=== PATIENT | female | born 1985 | race Caucasian/White ===

== ENCOUNTER 2019-02-07 17:32 | Emergency (ER) | payer SELFPAY, MEDICAID | END 2019-02-07 19:42 | disposition home or self-care (01) | LOC: ER 17:32 ==

== ENCOUNTER 2019-05-01 01:40 | Emergency (ER) | payer SELFPAY ==
[~2019-05-01] VITALS: Ht 152.4 cm; Wt 59.0 kg
[~2019-05-01 01:40] MED LIST: CEPH500C PO; METR500T PO; NITR-65 PO; PRM25T PO
--- NOTE | 2019-05-01 01:46 | NUR ---
pt reports fall from standing position striking occiput of head. denies loc. also reports possible retained tampon. pt requesting ct of head eat. lab work be drawn.
[2019-05-01 02:02] LABS: BILIRUBIN,URINE NEGATIVE (NEGATIVE); CLARITY,URINE CLEAR; COLOR,URINE AMBER; GLUCOSE, URINE (UA) NEGATIVE (NEGATIVE); KETONES,URINE 1+ (NEGATIVE); LEUKOCYTE ESTERASE ,URINE 1+ (NEGATIVE); NITRITE,URINE NEGATIVE (NEGATIVE); PH,URINE 5 (5-9); PROTEIN,URINE 1+ (NEGATIVE); UROBILINOGEN,URINE 1 MG/DL (NORMAL)
--- NOTE | 2019-05-01 02:14 | ED General ---
General Chief Complaint: General Problems/Pain Stated Complaint: HERNIA,ABD PAIN,HEAD INJURY Nursing Triage Note: fall posterior head pain, no loc. possible retained tampon Nursing Sepsis Screen: No Definite Risk Allergies and Home Medications Allergies Coded Allergies: No Known Drug Allergies (Verified Allergy, Unknown, 12/31/07) Home Medications No Active Prescriptions or Reported Meds Past Tvnnwfh-Fpfxvl-Ptouyi Hx Patient Social History Alcohol Use: Occasionally Uses Recreational Drug Use: No Drug of Choice: METH Smoking Status: Current Everyday Smoker Type Used: Cigarettes Recent Foreign Travel: No Contact w/Someone Who Travel: No Recent Infectious Disease Expo: No Recent Hopitalizations: No Physical Abuse: No Sexual Abuse: No Mistreated: No Fear: No Immunizations Up To Date Tetanus Booster (TDap): Unknown Seasonal Allergies Seasonal Allergies: No Past Medical History Surgeries: No Respiratory: No Cardiac: No Neurological: No : No Last Menstrual Period: May 01, 2019 Reproductive Disorders: No Sexually Transmitted Disease: No Genitourinary: No Gastrointestinal: No Musculoskeletal: No Endocrine: No HEENT: No Cancer: No Psychosocial: No Integumentary: No Blood Disorders: No Physical Exam Vital Signs Vital Signs - First Documented 05/01/19 01:46 Temp 96.1 Pulse 102 Resp 20 B/P (MAP) 130/91 (104) Pulse Ox 100 O2 Delivery Room Air Capillary Refill : Less Than 3 Seconds Height, Weight, BMI Height: 5'0" Weight: 130lbs. oz. 58.925284ds; 23.43 BMI Method:Stated Progress/Results/Core Measures Suspected Sepsis Recent Fever Within 48 Hours: No Infection Criteria Present: None New/Unexplained Altered Menta: No Sepsis Screen: No Definite Risk SIRS Temperature:96.1 Pulse: 102 Respiratory Rate: 20 Blood Pressure 130 /91 Mean: 104 Results/Orders Lab Results Laboratory Tests Test 05/01/19 01:55 Range/Units Urine Color YAMIL H Urine Clarity CLEAR Urine pH 5 5-9 Urine Specific Stewart 1.020 1.016-1.022 Urine Protein 1+ H NEGATIVE Urine Glucose (UA) NEGATIVE NEGATIVE Urine Ketones 1+ H NEGATIVE Urine Nitrite NEGATIVE NEGATIVE Urine Bilirubin NEGATIVE NEGATIVE Urine Urobilinogen 1 NORMAL MG/DL Urine Leukocyte Esterase 1+ H NEGATIVE Urine RBC (Auto) 5+ H NEGATIVE Urine RBC RARE /HPF Urine WBC 0-2 /HPF Urine Squamous Epithelial Cells 10-25 H /HPF Urine Crystals NONE /LPF Urine Bacteria FEW H /HPF Urine Casts NONE /LPF Urine Mucus MODERATE H /LPF Urine Culture Indicated NO Urine Opiates Screen NEGATIVE NEGATIVE Urine Oxycodone Screen NEGATIVE NEGATIVE Urine Methadone Screen NEGATIVE NEGATIVE Urine Propoxyphene Screen NEGATIVE NEGATIVE Urine Barbiturates Screen NEGATIVE NEGATIVE Ur Tricyclic Antidepressants Screen NEGATIVE NEGATIVE Urine Phencyclidine Screen NEGATIVE NEGATIVE Urine Amphetamines Screen POSITIVE H NEGATIVE Urine Methamphetamines Screen POSITIVE H NEGATIVE Urine Benzodiazepines Screen NEGATIVE NEGATIVE Urine Cocaine Screen NEGATIVE NEGATIVE Urine Cannabinoids Screen NEGATIVE NEGATIVE My Orders Orders - NANDINI CURRAN DO Urine Bedside (05/01/19 01:50) Ua Culture If Indicated (05/01/19 01:50) Drug Screen Stat (Urine) (05/01/19 02:07) Vital Signs/I&O 05/01/19 01:46 Temp 96.1 Pulse 102 Resp 20 B/P (MAP) 130/91 (104) Pulse Ox 100 O2 Delivery Room Air Capillary Refill : Less Than 3 Seconds Blood Pressure Mean: 104 Departure Impression Primary Impression: ALLEGED MINOR HEAD CONTUSION--SELF REPORTED Additional Impressions: EXAM TO CHECK FOR POSSIBLE RETAINED TAMPON Illicit drug use Disposition: HOME, SELF-CARE Condition: Stable Departure-Patient Inst. Referrals: NO,LOCAL PHYSICIAN (PCP/Family) Primary Care Physician Patient Instructions: Drug Abuse and Drug Addiction (DC), Minor Head Injury (DC) Add. Discharge Instructions: TYLENOL NEEDED FOR PAIN FOLLOW UP WITH YOUR DR FOR FURTHER CARE All discharge instructions reviewed with patient and/or family. Voiced understanding. Scripts No Active Prescriptions or Reported Meds NANDINI CURRAN DO May 01, 2019 02:14
[2019-05-01 02:25] LABS: AMPHETAMINE SCREEN, URINE POSITIVE (NEGATIVE); BARBITURATE SCREEN URINE NEGATIVE (NEGATIVE); BENZODIAZEPINES SCREEN URINE NEGATIVE (NEGATIVE); CANNABINOID SCREEN, URINE NEGATIVE (NEGATIVE); COCAINE SCREEN URINE NEGATIVE (NEGATIVE); METHADONE STAT NEGATIVE (NEGATIVE); METHAMPHETAMINE SCREEN URINE S POSITIVE (NEGATIVE); OPIATE SCREEN URINE NEGATIVE (NEGATIVE); OXYCODONE STAT NEGATIVE (NEGATIVE); PROPOXYPHENE STAT NEGATIVE (NEGATIVE); TRICYCLIC ANTIDEPRESSANTS SCRE NEGATIVE (NEGATIVE)
[2019-05-01 02:26] LABS: BACTERIA,URINE FEW /HPF; RBC,URINE RARE /HPF; WBC,URINE 0-2 /HPF
[2019-05-01 02:29] VITALS: BP 130/91
== END 2019-05-01 02:29 | disposition home or self-care (01) ==
LOC: EDUNIT# 01:40 → ER 01:44
DX: S00.93XA Contusion of unspecified part of head, initial encounter (principal); F15.90 Other stimulant use, unspecified, uncomplicated; F12.90 Cannabis use, unspecified, uncomplicated; F17.210 Nicotine dependence, cigarettes, uncomplicated; W19.XXXA Unspecified fall, initial encounter
CPT/HCPCS: 80306; 81000; 84703; 99282

== ENCOUNTER 2020-07-03 16:25 | Emergency (ER) | payer SELFPAY ==
[~2020-07-03] VITALS: Ht 152 cm; Wt 65.0 kg
[2020-07-03] MEDS ORDERED: LORazepam INJ 2 MG/ML (ATIVAN) VIAL ONE ×2 (16:33→16:43)
[2020-07-03] MEDS ORDERED: LORazepam INJ 2 MG/ML (ATIVAN) VIAL IVP ONE ×2 (16:45)
[2020-07-03] MEDS ORDERED: NS IV 1000 ML 1,000 ML IV SCH (16:45)
--- NOTE | 2020-07-03 16:48 | ED General ---
General Stated Complaint: AMS Source of Information: Patient Exam Limitations: No Limitations History of Present Illness Date Seen by Provider: Jul 03, 2020 Time Seen by Provider: 16:46 Initial Comments This lady was dropped off at the emergency room entrance by [facility] with no report as to why. She is speaking in some apparent foreign language a very high rate of speed, crying, states "get this baby out of me" she has a [facility] [employer] inmate badge with her as well as a package of cigarettes. Reports using meth "2 days ago" Timing/Duration: Other (unknown) Modifying Factors: improves with Other (unknown) Associated Systoms: Denies Symptoms Allergies and Home Medications Allergies Coded Allergies: No Known Drug Allergies (Verified Allergy, Unknown, 12/31/07) Home Medications No Active Prescriptions or Reported Meds Patient Home Medication List Home Medication List Reviewed: Yes Review of Systems Review of Systems Constitutional: see HPI EENTM: see HPI Respiratory: no symptoms reported Cardiovascular: no symptoms reported Genitourinary: no symptoms reported Musculoskeletal: no symptoms reported Skin: no symptoms reported Psychiatric/Neurological: No Symptoms Reported Hematologic/Lymphatic: No Symptoms Reported Past Ntjxhpn-Uwtpru-Jabzpc Hx Patient Social History Drug of Choice: METH, THC Type Used: Cigarettes Recent Hopitalizations: No Immunizations Up To Date Tetanus Booster (TDap): Unknown Seasonal Allergies Seasonal Allergies: No Past Medical History Surgeries: No Respiratory: No Cardiac: No Neurological: No Reproductive Disorders: No Sexually Transmitted Disease: No Genitourinary: No Gastrointestinal: No Musculoskeletal: No Endocrine: No HEENT: No Cancer: No Psychosocial: No Integumentary: No Blood Disorders: No Physical Exam Vital Signs Vital Signs - First Documented 07/03/20 16:30 Temp 36.4 Pulse 134 Resp 28 B/P (MAP) 119/92 (101) Pulse Ox 98 Capillary Refill : Height, Weight, BMI Height: 5'0" Weight: 130lbs. oz. 58.341975mf; 23.43 BMI Method:Stated General Appearance: No Apparent Distress, WD/WN, Other (writhing, unable to sit still, speaking in pressured high rate of speech. Multiple sores all over. She pulls a package of cigarettes and a box blade out of her knee-high leather boots as well as the only identification she has with her which is a [place] [employer] offender baggage.) Eyes: Bilateral Eye Normal Inspection, Bilateral Eye PERRL Neck: Full Range of Motion, Normal Inspection Respiratory: No Accessory Muscle Use, No Respiratory Distress Cardiovascular: Regular Rate, Rhythm Gastrointestinal: Non Tender, Soft, Other (fundus is about correction between the umbilicus and xiphoid. Cervical os is closed. Confirmed with Emma, women's services RN and Dr. Mace. Bedside ultrasound reveals positive motion with cardiac activity.) Extremity: Normal Capillary Refill, Normal Inspection Neurologic/Psychiatric: Alert, Oriented x3 Skin: Normal Color, Warm/Dry Progress/Results/Core Measures Suspected Sepsis SIRS Temperature: Pulse: Respiratory Rate: Laboratory Tests 07/03/20 16:30: White Blood Count 10.5 Blood Pressure / Mean: Laboratory Tests 07/03/20 16:30: Creatinine 0.57L, Platelet Count 453H, Total Bilirubin 0.4 Results/Orders Lab Results Laboratory Tests Test 07/03/20 16:30 07/03/20 22:14 Range/Units White Blood Count 10.5 4.3-11.0 10^3/uL Red Blood Count 3.78 L 3.80-5.11 10^6/uL Hemoglobin 12.7 11.5-16.0 g/dL Hematocrit 34 L 35-52 % Mean Corpuscular Volume 91 80-99 fL Mean Corpuscular Hemoglobin 34 25-34 pg Mean Corpuscular Hemoglobin Concent 37 H 32-36 g/dL Red Cell Distribution Width 12.8 10.0-14.5 % Platelet Count 453 H 130-400 10^3/uL Mean Platelet Volume 11.3 9.0-12.2 fL Immature Granulocyte % (Auto) 1 % Neutrophils (%) (Auto) 74 42-75 % Lymphocytes (%) (Auto) 17 12-44 % Monocytes (%) (Auto) 8 0-12 % Eosinophils (%) (Auto) 1 0-10 % Basophils (%) (Auto) 0 0-10 % Neutrophils # (Auto) 7.7 1.8-7.8 10^3/uL Lymphocytes # (Auto) 1.8 1.0-4.0 10^3/uL Monocytes # (Auto) 0.8 0.0-1.0 10^3/uL Eosinophils # (Auto) 0.1 0.0-0.3 10^3/uL Basophils # (Auto) 0.0 0.0-0.1 10^3/uL Immature Granulocyte # (Auto) 0.1 0.0-0.1 10^3/uL Sodium Level 136 135-145 MMOL/L Potassium Level 4.0 3.6-5.0 MMOL/L Chloride Level 106 98-107 MMOL/L Carbon Dioxide Level 18 L 21-32 MMOL/L Anion Gap 12 5-14 MMOL/L Blood Urea Nitrogen 9 7-18 MG/DL Creatinine 0.57 L 0.60-1.30 MG/DL Estimat Glomerular Filtration Rate > 60 BUN/Creatinine Ratio 16 Glucose Level 87 70-105 MG/DL Calcium Level 8.5 8.5-10.1 MG/DL Corrected Calcium 8.7 8.5-10.1 MG/DL Total Bilirubin 0.4 0.1-1.0 MG/DL Aspartate Amino Transf (AST/SGOT) 33 5-34 U/L Alanine Aminotransferase (ALT/SGPT) 16 0-55 U/L Alkaline Phosphatase 88 40-136 U/L Total Protein 6.8 6.4-8.2 GM/DL Albumin 3.7 3.2-4.5 GM/DL Human Chorionic Gonadotropin, Quant 4071 H <5 MIU/ML Urine Color YELLOW Urine Clarity CLEAR Urine pH 6.0 5-9 Urine Specific Candler >=1.030 1.016-1.022 Urine Protein NEGATIVE NEGATIVE Urine Glucose (UA) NEGATIVE NEGATIVE Urine Ketones 2+ H NEGATIVE Urine Nitrite NEGATIVE NEGATIVE Urine Bilirubin NEGATIVE NEGATIVE Urine Urobilinogen 0.2 < = 1.0 MG/DL Urine Leukocyte Esterase NEGATIVE NEGATIVE Urine RBC (Auto) NEGATIVE NEGATIVE Urine RBC NONE /HPF Urine WBC 0-2 /HPF Urine Crystals PRESENT H /LPF Urine Amorphous Sediment RARE MAR URATES H /LPF Urine Bacteria TRACE /HPF Urine Casts NONE /LPF Urine Mucus SMALL H /LPF Urine Culture Indicated NO Urine Opiates Screen NEGATIVE NEGATIVE Urine Oxycodone Screen NEGATIVE NEGATIVE Urine Methadone Screen NEGATIVE NEGATIVE Urine Propoxyphene Screen NEGATIVE NEGATIVE Urine Barbiturates Screen NEGATIVE NEGATIVE Ur Tricyclic Antidepressants Screen NEGATIVE NEGATIVE Urine Phencyclidine Screen NEGATIVE NEGATIVE Urine Amphetamines Screen POSITIVE H NEGATIVE Urine Methamphetamines Screen POSITIVE H NEGATIVE Urine Benzodiazepines Screen POSITIVE H NEGATIVE Urine Cocaine Screen NEGATIVE NEGATIVE Urine Cannabinoids Screen NEGATIVE NEGATIVE My Orders Orders - ESTEE SAMANIEGO INSURANCE INSPECTOR Cbc With Automated Diff (07/03/20 16:45) Comprehensive Metabolic Panel (07/03/20 16:45) Ua Culture If Indicated (07/03/20 16:45) Hcg,Quantitative (07/03/20 16:45) Ed Iv/Invasive Line Start (07/03/20 16:45) Drug Screen Stat (Urine) (07/03/20 16:45) Lorazepam Injection (Ativan Injection) (07/03/20 16:45) Lorazepam Injection (Ativan Injection) (07/03/20 16:45) Ns Iv 1000 Ml (Sodium Chloride 0.9%) (07/03/20 16:45) Ceftriaxone For Iv Use (Rocephin For I (07/03/20 22:30) Olanzapine Orally Dissolve Tab (Zyprexa (07/03/20 22:45) Olanzapine Orally Dissolve Tab (Zyprexa (07/03/20 22:40) Medications Given in ED Current Medications Medications Dose Ordered Sig/Bea Route Start Time Stop Time Status Last Admin Dose Admin Lorazepam 2 mg ONCE ONCE IVP 07/03/20 16:45 07/03/20 16:47 DC 07/03/20 16:32 2 MG Lorazepam 2 mg ONCE ONCE IVP 07/03/20 16:45 07/03/20 16:47 DC 07/03/20 16:43 2 MG Olanzapine 5 mg ONCE ONCE PO 07/03/20 22:45 07/03/20 22:46 DC 07/03/20 22:42 5 MG Vital Signs/I&O 07/03/20 16:30 Temp 36.4 Pulse 134 Resp 28 B/P (MAP) 119/92 (101) Pulse Ox 98 Capillary Refill : Departure Communication (Admissions) 1709-after 4 mg of IV lorazepam she is now able to sit still on the bed. She continues to speak in very fast and unrecognizable language with occasional understandable words. She believes she is about 8-9 months and she got an ultrasound May 17. Beyond that I'm not able to obtain any useful information from her. There is no vaginal bleeding. The placenta is seen attached to the anterior and superior uterine wall on bedside ultrasound with cardiac activity seen at a rate of 150 2221-Speech is more understandable now. Offered her a sandwich tray and she would like that. She also asks for a phonebooks so she can call a ride. Intermittently agitated and tearful. Impression Primary Impression: Methamphetamine use Additional Impression: Disposition: 01 HOME, SELF-CARE Condition: Stable Departure-Patient Inst. Decision time for Depature: 22:21 Referrals: NO,LOCAL PHYSICIAN (PCP/Family) Primary Care Physician Patient Instructions: Drug Abuse Treatment Add. Discharge Instructions: 1. Methamphetamine use during is not a wonderful idea. Please call [facility] at [phone] Vicenta Murillo for help with discontinuing methamphetamine use. Follow-up with your regular monogram maker for care of this child. Scripts No Active Prescriptions or Reported Meds ESTEE SAMANIEGO APRN Jul 03, 2020 16:48
[2020-07-03 16:54] LABS: BASOPHILS % (AUTO) 0 % (0-10); EOSINOPHILS # (AUTO) 0.1 10^3/uL (0.0-0.3); EOSINOPHILS % (AUTO) 1 % (0-10); HEMATOCRIT 34 % (35-52); HEMOGLOBIN 12.7 g/dL (11.5-16.0); LYMPHOCYTES # (AUTO) 1.8 10^3/uL (1.0-4.0); LYMPHOCYTES % (AUTO) 17 % (12-44); MEAN CORPUSCULAR HEMOGLOBIN 34 pg (25-34); MEAN CORPUSCULAR HGB CONC 37 g/dL (32-36); MEAN CORPUSCULAR VOLUME 91 fL (80-99); MEAN PLATELET VOLUME 11.3 fL (9.0-12.2); MONOCYTES # (AUTO) 0.8 10^3/uL (0.0-1.0); MONOCYTES % (AUTO) 8 % (0-12); NEUTROPHILS # (AUTO) 7.7 10^3/uL (1.8-7.8); NEUTROPHILS % (AUTO) 74 % (42-75); PLATELET COUNT 453 10^3/uL (130-400); WHITE BLOOD COUNT 10.5 10^3/uL (4.3-11.0)
[2020-07-03 17:08] LABS: ALBUMIN 3.7 GM/DL (3.2-4.5); CHLORIDE 106 MMOL/L (98-107); SODIUM 136 MMOL/L (135-145)
[2020-07-03 17:09] LABS: CALCIUM 8.5 MG/DL (8.5-10.1)
[2020-07-03 17:10] LABS: GLUCOSE 87 MG/DL (70-105); TOTAL PROTEIN 6.8 GM/DL (6.4-8.2)
[2020-07-03 17:11] LABS: CARBON DIOXIDE 18 MMOL/L (21-32)
[2020-07-03 17:12] LABS: BILIRUBIN,TOTAL 0.4 MG/DL (0.1-1.0)
[2020-07-03 17:14] LABS: ALKALINE PHOSPHATASE 88 U/L (40-136); CREATININE SERUM 0.57 MG/DL (0.60-1.30); GFR ESTIMATED > 60
[2020-07-03 17:15] LABS: BUN/CREATININE RATIO 16
[2020-07-03 17:17] LABS: ALANINE AMINOTRANSFERASE 16 U/L (0-55)
--- NOTE | 2020-07-03 18:37 | NUR ---
PT CONT TO REST IN ROOM NO DISTRESS NOTED
[2020-07-03 22:24] LABS: BILIRUBIN,URINE NEGATIVE (NEGATIVE); CLARITY,URINE CLEAR; COLOR,URINE YELLOW; GLUCOSE, URINE (UA) NEGATIVE (NEGATIVE); KETONES,URINE 2+ (NEGATIVE); LEUKOCYTE ESTERASE ,URINE NEGATIVE (NEGATIVE); NITRITE,URINE NEGATIVE (NEGATIVE); PROTEIN,URINE NEGATIVE (NEGATIVE)
[2020-07-03] MEDS ORDERED: cefTRIAXone FOR IV USE 1,000 MG in WATER (STERILE) FOR INJECTION 10 ML IV ONE (22:30)
[2020-07-03 22:38] LABS: AMPHETAMINE SCREEN, URINE POSITIVE (NEGATIVE); BACTERIA,URINE TRACE /HPF; BARBITURATE SCREEN URINE NEGATIVE (NEGATIVE); BENZODIAZEPINES SCREEN URINE POSITIVE (NEGATIVE); CANNABINOID SCREEN, URINE NEGATIVE (NEGATIVE); COCAINE SCREEN URINE NEGATIVE (NEGATIVE); METHADONE STAT NEGATIVE (NEGATIVE); METHAMPHETAMINE SCREEN URINE S POSITIVE (NEGATIVE); OPIATE SCREEN URINE NEGATIVE (NEGATIVE); OXYCODONE STAT NEGATIVE (NEGATIVE); PROPOXYPHENE STAT NEGATIVE (NEGATIVE); TRICYCLIC ANTIDEPRESSANTS SCRE NEGATIVE (NEGATIVE); WBC,URINE 0-2 /HPF
[2020-07-03 22:39] LABS: AMORPHOUS SEDIMENT,UR RARE AMOR URATES /LPF
[2020-07-03] MEDS ORDERED: OLANZapine 5 MG ODT (ZyPREXA ZYDIS) ONE (22:40)
[2020-07-03] MEDS ORDERED: OLANZapine 5 MG ODT (ZyPREXA ZYDIS) PO ONE (22:45)
[2020-07-03 23:58] VITALS: BP 115/89
--- NOTE | 2020-07-03 23:58 | NUR ---
2229 TO 2357- DURING THIS TIME PT STOPPED BY STAFF FOR TRYING TO SMOKE IN ROOM, PT PRESENTED TO NURSES STATION MULTIPLE TIMES RAMBLING AND ASKING FOR VARIOUS ITEMS, PT ASKED BY MULTIPLE STAFF MULTIPLE TIMES IF SHE HAD A WAY TO HER NEXT DESTINATION AND PT RAMBLED AND NEVER GAVE COMPLETE ANSWER. PHONE NUMBERS PROVIDED BY PT RECEIVED NO ANSWER. STAFF TRYING TO FIND SAFE RIDE AND SAFE DESTINATION PT WOULD NEVER STATE WHERE SHE COULD GO AFTER DISCHARGE AND PT HAD BEEN ORIGINALLY DROPPED OFF AT FRONT OF ER BY [facility] AFTER FOUND WANDERING DOWN [address]. 2357- AT THIS TIME PT TRYING TO LEAVE ER WITH IV STILL IN PLACE SAYING, "I'VE GOT TO GET OUT OF HERE. I'VE GOT TO SMOKE". PT AGREEABLE TO IV BEING TAKEN OUT BUT DENIED WILLING TO WAIT FOR D/C PAPERWORK NOR WOULD SIGN AMA FORM. 22G IV SITE TO LEFT HAND REMOVED AT THIS TIME BY MARLA DAWSON. PT LEFT AMA.
== END 2020-07-03 23:58 | disposition home or self-care (01) ==
LOC: EDUNIT# 16:25 → ER 16:26
DX: Z33.1 Pregnant state, incidental (principal); F15.90 Other stimulant use, unspecified, uncomplicated
CPT/HCPCS: 36415; 80053; 80306; 81000; 84702; 85025

== ENCOUNTER 2020-07-05 19:30 | Outpatient (CLI) | payer MEDICAID ==
[~2020-07-05] VITALS: Ht 152.4 cm; Wt 68.5 kg
--- NOTE | 2020-07-05 19:38 | NUR ---
RAIN WYLIE / presented to unit from ED, with c/o LOW ABD PAIN;LOW BACK PAIN. RAIN WYLIE weighed, gowned, voided, and to bed. EFHM and TOCO applied, VS taken. RAIN WYLIE oriented to bed controls, call light, TV, heat, and A/C controls. Pt. denies bleeding or LOF.
--- NOTE | 2020-07-05 20:08 | NUR ---
Dr. Stanton called with update on pt. Vitals signs, strip, contraction pattern, and SVE reviewed with Dr. Rivas informed that pt has had no care. states that pt can be discharged at this time, but to encourage pt to call office in the morning to make appointment.
--- NOTE | 2020-07-05 20:11 | NUR ---
Nurse at pt. bedside. Informed that she was not in labor and that stated that she could be discharged. Pt. started to cry stating that "if she wasn't having the baby this evening that she wanted an ." Pt. is dishevelled and confused. Pt. asked about drug use to which she denied. Pt. continues to ask for an . Nurse encourages pt. to get an appointment with Dr. Stanton tomorrow to discuss options. Pt. refuses. Nurse out to desk at this time to call back.
[2020-07-05 20:46] LABS: AMPHETAMINE SCREEN, URINE POSITIVE (NEGATIVE); BARBITURATE SCREEN URINE NEGATIVE (NEGATIVE); BENZODIAZEPINES SCREEN URINE POSITIVE (NEGATIVE); CANNABINOID SCREEN, URINE NEGATIVE (NEGATIVE); COCAINE SCREEN URINE NEGATIVE (NEGATIVE); METHADONE STAT NEGATIVE (NEGATIVE); METHAMPHETAMINE SCREEN URINE S POSITIVE (NEGATIVE); OPIATE SCREEN URINE NEGATIVE (NEGATIVE); OXYCODONE STAT NEGATIVE (NEGATIVE); PROPOXYPHENE STAT NEGATIVE (NEGATIVE); TRICYCLIC ANTIDEPRESSANTS SCRE NEGATIVE (NEGATIVE)
[2020-07-05 20:58] VITALS: BP 124/82
[2020-07-05 21:00] VITALS: BP 124/82
--- NOTE | 2020-07-05 21:10 | NUR ---
Options reviewed with pt. Pt. stated that she will not be able to get an tonight at our facility, but that we can watch her tonight, give her a bed to sleep in and have her be seen in the OB office tomorrow. Pt. agrees to this.
--- NOTE | 2020-07-05 21:12 | NUR ---
Pt. now belligerent. Beating on bed and door stating that she is going to "fucking destroy this place."
--- NOTE | 2020-07-05 21:15 | NUR ---
supervisor esters and emulsifiers called and updated on situation. Conductor Symphonic Orchestra decided to call officers at this time.
--- NOTE | 2020-07-05 21:22 | NUR ---
Officers on unit at this time.
--- NOTE | 2020-07-05 21:25 | NUR ---
washing and screening plant supervisor at pt. bedside. Pt. informed that she will not be allowed to stay the night if she starts yelling or throwing things. Pt. informed that she cannot smoke in the room. Heating And Cooling Systems Engineer removed from room.
[2020-07-05] MEDS ORDERED: D5 LR IV SOLUTION 1,000 ML IV ONE (21:36)
[2020-07-05] MEDS ORDERED: D5 1/2 NS 1000 ML IV SOLUTION 1,000 ML IV SCH (21:45)
[2020-07-05] MEDS ORDERED: D5 LR IV SOLUTION 1,000 ML IV SCH (21:45)
[2020-07-06] MEDS ORDERED: CALCIUM CARBONATE 500 MG (TUMS) TAB.CHEW ONE (00:21)
[2020-07-06] MEDS ORDERED: CALCIUM CARBONATE 500 MG (TUMS) TAB.CHEW PO ONE (00:30)
[2020-07-06] MEDS ORDERED: ACETAMINOPHEN 500 MG TAB (TYLENOL) PO PRN (01:15)
[2020-07-06 04:14] VITALS: BP 104/56
--- NOTE | 2020-07-06 07:00 | NUR ---
Called Dr. Stanton, update given including UDS results, will round on pt. New order rc'd that pt may be D/C'd if she desires before then.
--- NOTE | 2020-07-06 08:18 | Physician Query-Final Dx ---
CRESCENCIO SLAUGHTER 07/06/20 0818: Clinic Account Progress/Dx Physician Query: Please give diagnosis Please include # weeks gestation Date of Service Jul 05, 2020 at 19:30 CHEY KAISER MD 07/06/20 1029: Clinic Account Progress/Dx DIAGNOSIS: Diagnosis patient is still here CRESCENCIO SLAUGHTER Jul 06, 2020 08:18 CHEY KAISER MD Jul 06, 2020 10:29
[2020-07-06 09:00] VITALS: BP 101/53
--- NOTE | 2020-07-06 09:55 | NUR ---
Dr. Stanton here to see pt. at bedside discussing pt hx, plan of care.
--- NOTE | 2020-07-06 10:39 | Discharge Inst-Surgical ---
Discharge Inst-Surgical Depart Medication/Instructions New, Converted or Re-Newed RX: Other Consults/Follow Up Patient Instructions: as directed Orders & Referrals Follow Up Appt: Call to make follow up appt. for patient in 1-2 weeks for OB care with Dr. Stanton or with physician of choice Activity: as tolerated. Stop using recreational drugs Diet: As tolerated shower or tub bathe as desired. Patient to return to the clinic as soon as possible for: Temperature greater than 101F, Severe Pain, Foul discharge from incision or vagina, Excessive Bleeding (more than a period). Activity Activity as Tolerated: Yes Diet Discharge Diet: No Restrictions CHEY STANTON MD Jul 06, 2020 10:39
--- NOTE | 2020-07-06 10:50 | History & Physical ---
History and Physical Date Seen by Provider: Jul 06, 2020 Time Seen by Provider: 10:12 this patient is a 34-year-old at least 4 para 3 3 was admitted last evening with complaints of pain pressure and contractions. this patient is a poor historian and some of her verbal responses to increase our unintelligible. She has a history of drug abuse and had been positive for methamphetamine within the last week on evaluation at this hospital. Repeat UDS showed methamphetamine, amphetamines, and benzodiazepines. Patient understands that she should not be using drugs while she is . Patient was evaluated and found not to be in labor. She was having pain that seems to have resolved with IV fluids and hydration. Patient reports having had care at an outside clinic. We will attempt to obtain those records. Patient reports having had an ultrasound this month at an outside clinic and gave her a due date of September 25, 2020 which would put her now at 28-3/7 weeks gestation. It is unsure what care this patient has hadTo date. Patient denies rupture membranes or bleeding currently she denies nausea or vomiting. Patient indicates that the pain that prompted her to come to the hospital has resolved. Patient indicates that she is allergic to something but is unsure which and is unable to communicate that to me Patient indicates that she is on no prescription medications Past medical history is negative per patient Past surgical history is significant for 3 C-sections Past obstetric history is significant for 3 previous pregnancies resulting in C- sections in addition to the current Social history patient denies alcohol use, she does indicate that she smokes c igarettes but I am unable to determine her back here history, She does admit to meth and other drug use Patient indicates that she is single Family history is unobtainable Laboratory Tests Test 07/05/20 20:15 Range/Units Urine Opiates Screen NEGATIVE NEGATIVE Urine Oxycodone Screen NEGATIVE NEGATIVE Urine Methadone Screen NEGATIVE NEGATIVE Urine Propoxyphene Screen NEGATIVE NEGATIVE Urine Barbiturates Screen NEGATIVE NEGATIVE Ur Tricyclic Antidepressants Screen NEGATIVE NEGATIVE Urine Phencyclidine Screen NEGATIVE NEGATIVE Urine Amphetamines Screen POSITIVE H NEGATIVE Urine Methamphetamines Screen POSITIVE H NEGATIVE Urine Benzodiazepines Screen POSITIVE H NEGATIVE Urine Cocaine Screen NEGATIVE NEGATIVE Urine Cannabinoids Screen NEGATIVE NEGATIVE HEENT exam is normal Neck is supple with no lymphadenopathy no thyromegaly Abdomen is gravid soft nontender nondistended Extremities show no clubbing cyanosis. There is no Homans sign. Pelvic exam is deferred Obstetric ultrasound is pending Obstetric/ lab work is pending assessment and plan as best as can be determined 28+ week gestation in a patient with 3 previous C-sections and with a history of ongoing drug use with no apparent current care. I have discussed drug abuse with the patient and she understands the inherent risks to her into her . We will consult social contact worker for any resources available to her Will allow discharge home with follow-up in clinic. Patient is given strict return to clinic precautions a total of 58 minutes was spent in direct [id number] contact with this patient over 50 percent of that time was spent in counseling false labor at 28+ weeks gestation Allergies and Home Medications Allergies Coded Allergies: No Known Drug Allergies (Verified , 12/31/07) Home Medications No Active Prescriptions or Reported Meds Patient Home Medication List Home Medication List Reviewed: Yes CHEY KAISER MD Jul 06, 2020 10:50
[2020-07-06] MEDS ORDERED: hydrOXYzine (VISTARIL/ATARAX) 25 MG capsule/tablet PO NR (11:00)
--- NOTE | 2020-07-06 11:30 | NUR ---
Sprite provided per pt request. Pt denies further needs at this time. US at bedside
--- NOTE | 2020-07-06 12:53 | Diagnostic Imaging Report ---
INDICATION: survey and drug abuse. TECHNIQUE: Multiple real-time grayscale images were obtained over the gravid uterus. COMPARISON: None. FINDINGS: There is a single live fetus in a breech presentation. heart rate was recorded at 160 bpm. Placenta is anterior. Amniotic fluid volume is normal. Cervical length is 6.1 cm. kidneys, bladder and stomach are unremarkable. brain is unremarkable. There is a four-chamber heart. There is a three-vessel cord with normal insertion. spine is unremarkable. Biometrical measurements are as follows: Biparietal 7.34 cm, age 29 weeks 4 days. Head circumference 27.55 cm, age 30 weeks 1 days. Abdominal circumference 25.12 cm, age 29 weeks 3 days. Femur length 5.22 cm, age 27 weeks 6 days. Sonographic estimate age: 29 weeks 2 days. Sonographic estimated date of delivery: 09/19/2020. Estimated Weight: 1305 gm (+/- 191 gm). LMP percentile: 56%. heart rate: 160 beats per minute. number: 1 of 1. IMPRESSION: Single live IUP of approximately 29 weeks 2 days gestational age. Estimated date of confinement sonographically is 09/19/2020. Dictated by: Dictated on workstation # [id number]
[2020-07-06 14:00] LABS: BASOPHILS % (AUTO) 0 % (0-10); EOSINOPHILS # (AUTO) 0.1 10^3/uL (0.0-0.3); EOSINOPHILS % (AUTO) 1 % (0-10); HEMATOCRIT 29 % (35-52); HEMOGLOBIN 10.6 g/dL (11.5-16.0); LYMPHOCYTES % (AUTO) 15 % (12-44); MEAN CORPUSCULAR HEMOGLOBIN 33 pg (25-34); MEAN CORPUSCULAR HGB CONC 36 g/dL (32-36); MEAN CORPUSCULAR VOLUME 92 fL (80-99); MONOCYTES # (AUTO) 0.4 10^3/uL (0.0-1.0); MONOCYTES % (AUTO) 6 % (0-12); NEUTROPHILS # (AUTO) 5.3 10^3/uL (1.8-7.8); NEUTROPHILS % (AUTO) 77 % (42-75); PLATELET COUNT 296 10^3/uL (130-400); WHITE BLOOD COUNT 6.9 10^3/uL (4.3-11.0)
[2020-07-06 14:11] LABS: ALBUMIN 2.9 GM/DL (3.2-4.5); CHLORIDE 108 MMOL/L (98-107); POTASSIUM 3.4 MMOL/L (3.6-5.0); SODIUM 136 MMOL/L (135-145)
[2020-07-06 14:13] LABS: GLUCOSE 122 MG/DL (70-105)
[2020-07-06 14:14] LABS: CARBON DIOXIDE 21 MMOL/L (21-32)
[2020-07-06 14:15] LABS: BILIRUBIN,TOTAL 0.3 MG/DL (0.1-1.0)
[2020-07-06 14:17] LABS: ALKALINE PHOSPHATASE 79 U/L (40-136); CREATININE SERUM 0.55 MG/DL (0.60-1.30); GFR ESTIMATED > 60
[2020-07-06 14:18] LABS: BUN/CREATININE RATIO 11
[2020-07-06 14:20] LABS: ALANINE AMINOTRANSFERASE 10 U/L (0-55)
--- NOTE | 2020-07-06 14:54 | NUR ---
Dr. Stanton called and notified of US report and lab results. Orders for discharge rec'd.
--- NOTE | 2020-07-06 15:13 | NUR ---
S.S. contacted regarding consult, all medical care completed, will be up shortly.
--- NOTE | 2020-07-06 15:55 | NUR ---
Discharge instructions explained to pt with copy provided to pt. Pt verbalizes understanding of instructions and signs to verify. Pt denies further needs at this time. Pt ambulates off unit to private vehicle with all personal belongings. No s/s of distress noted.
--- NOTE | 2020-07-06 16:38 | NUR ---
CM/SS visited with patient for social service consult. Plan: patient will discharge today with resources, gas card, and clothes. [facility] Report ID: [id number]. CM/SS made an online report due to patient's positive Urine Drug Screen, safety of unborn child, Homelessness, and lack of medical care. CM/SS informed the patient of report being made. Patient's speech became faster and harder to understanding. She started rocking back and forth and throwing down the resource papers this sw provided. She became agitated but redirected easily. Home: CM/SS asked to verify patient's address listed on Face Sheet. The patient said yes, when the address was read off. CM/SS asked for clarification due to a nurse stating she was staying in a van. The patient then stated that the address was of someone she knows. The patient would not give this sw a location of van but states it's in town. The van is untagged. Substance use: The patient denies any past or current substance use. The patient's Urine Drug Screen was positive. The patient stated she does not drink or smoke cigarettes but reported to smoking Cigars on occasion. Insurance/Finances: The patient reports that she does have Medicaid; however, she does not have food stamps or get mota assistance. CM/SS discussed options for filling out the applications and who could be of assistance. She verbalized understanding. Resources: CM/SS provided the patient with resources for [facility], [facility] Mental Health: Mental health and Substance abuse resource ([facility]), and [facility]: [facility] treatment outpatient. CM/SS additionally provided the patient with clothes (hoodie, leggings, and a t-shirt) and a Gas card for $25 dollars. Supports: The patient's supports are unknown. Patient has had 3 c-sections in this hospital but denies having children. Unsure if patient has custody at this time. Denies spouse or significant other. Denies friends or family that are local. No further needs at this time.
== END 2020-07-06 16:00 | disposition home or self-care (01) ==
LOC: WSo 19:30 → LDRP 19:30 → WSo 07-06 16:00
PROVIDERS: ATTEND Obstetrics & Gynecology
DX: Z36.89 Encounter for other specified antenatal screening (principal); F19.10 Other psychoactive substance abuse, uncomplicated; Z3A.29 29 weeks gestation of pregnancy
CPT/HCPCS: 36415; 76805; 80053; 80306; 84443; 85025; 86703; 86762; 86780; 87340

== ENCOUNTER 2020-07-16 19:53 | Observation (INO) | payer OTHER, MEDICAID ==
[~2020-07-16] VITALS: Ht 152.4 cm; Wt 69.3 kg
--- NOTE | 2020-07-16 20:02 | NUR ---
RAIN WYLIE presented to unit via AMBULATORY from ED/[facility], accompanied by ONLINE ADVERTISING ANALYST, with c/o VAG BLEEDING. RAIN WYLIE weighed, gowned, voided, and to bed. EFHM and TOCO applied, VS taken. RAIN WYLIE oriented to bed controls, call light, TV, heat, and A/C controls.
--- NOTE | 2020-07-16 20:11 | NUR ---
pt's right wrist handcuffed to bed, airfield services officer at bedside. pt was arrested two days ago for possession of meth. pt states she is here to have the baby. pt states having vaginal bleeding today, asked pt to describe bleeding, (heavy, light, scant?), pt states heavy bleeding that is continuing. No vaginal bleeding noted currently at perineum. Pt states was unable to urinate either for UA. Denies burning, or pain with urination, denies vaginal itching or odor but does states has discharge at times, but this is "normal" during . Asked pt when her due date is, she states she is due now and the was "27 inches long" last time she was here,"the baby cant move, bc he is out of room", "i need an emergency right now because it is too big". Discussed evaluation with pt, pt agitated and yelling. Discussed would get resident and discuss plan of care.
--- NOTE | 2020-07-16 20:30 | NUR ---
Orders received for cbc/cmp,lab called for blood draw. Orders received for wet prep, gc/chlamydia swab with spec exam per resident. Discussed plan with pt, pt screaming "she needs an emergency c/s and is refusing exam.
[2020-07-16 20:40] VITALS: BP 116/72
[2020-07-16 20:49] LABS: BASOPHILS % (AUTO) 0 % (0-10); EOSINOPHILS # (AUTO) 0.1 10^3/uL (0.0-0.3); EOSINOPHILS % (AUTO) 1 % (0-10); HEMATOCRIT 31 % (35-52); HEMOGLOBIN 11.1 g/dL (11.5-16.0); LYMPHOCYTES # (AUTO) 1.6 10^3/uL (1.0-4.0); LYMPHOCYTES % (AUTO) 21 % (12-44); MEAN CORPUSCULAR HEMOGLOBIN 33 pg (25-34); MEAN CORPUSCULAR HGB CONC 36 g/dL (32-36); MEAN CORPUSCULAR VOLUME 92 fL (80-99); MEAN PLATELET VOLUME 10.4 fL (9.0-12.2); MONOCYTES # (AUTO) 0.8 10^3/uL (0.0-1.0); MONOCYTES % (AUTO) 10 % (0-12); NEUTROPHILS # (AUTO) 5.1 10^3/uL (1.8-7.8); NEUTROPHILS % (AUTO) 67 % (42-75); PLATELET COUNT 300 10^3/uL (130-400); WHITE BLOOD COUNT 7.6 10^3/uL (4.3-11.0)
--- NOTE | 2020-07-16 20:55 | NUR ---
Rn to room, pt on right side at this time, efm and toco adjusted.pt denies ctx's or pain, but cont to state the infant doesn't have anymore room to grow bc he is "28 inches" long.
[2020-07-16 21:00] VITALS: BP 116/72
[2020-07-16 21:00] LABS: ALBUMIN 3.3 GM/DL (3.2-4.5); CHLORIDE 103 MMOL/L (98-107); POTASSIUM 3.8 MMOL/L (3.6-5.0); SODIUM 136 MMOL/L (135-145)
[2020-07-16 21:02] LABS: CALCIUM 8.5 MG/DL (8.5-10.1)
[2020-07-16 21:03] LABS: GLUCOSE 87 MG/DL (70-105); TOTAL PROTEIN 5.7 GM/DL (6.4-8.2)
[2020-07-16 21:04] LABS: BILIRUBIN,TOTAL 0.2 MG/DL (0.1-1.0); CARBON DIOXIDE 24 MMOL/L (21-32)
[2020-07-16 21:06] LABS: ALKALINE PHOSPHATASE 90 U/L (40-136); CREATININE SERUM 0.55 MG/DL (0.60-1.30); GFR ESTIMATED > 60
[2020-07-16 21:07] LABS: BUN/CREATININE RATIO 16
[2020-07-16 21:09] LABS: ALANINE AMINOTRANSFERASE 18 U/L (0-55)
--- NOTE | 2020-07-16 21:45 | NUR ---
Dr. Kruger called and updated on pt's history of drug use, aggressive behavior in hospital, sono results from 07/06/2020, pt's non compliance with plan of care. Will do SVE and attempt UA with next void, DC spec exam and wet prep. Will update pt on plan of care.
--- NOTE | 2020-07-16 21:46 | NUR ---
RN to room and discussed plan to do cervical exam and ua to rule out UTI. Pt states yelling and pulling her handcuffed arm back and forth aggressively. pt is now crying and cont to yellow that she needs an emergency c/s bc the baby is "28 inches long". RN reviewed sono report with pt discussing cm vs inches with pt, pt is now hitting her own face with left hand saying she is in an correction and wants to . curb supervisor at bedside with RN, pt and officer at this time, pt yelling stating she needs a doctor to deliver baby. Rn left room to call dr. quan at [phone], pt then removes external monitors from self refusing to wear them, hitting her abdomen, officer handcuffs left wrist to bed as well to protect her from hurting herself or others. Orders received to keep pt for psych eval for tomorrow. Will try to obtain UA tonight and sve if possible if pt allows. Okay to dc monitors at this time.
--- NOTE | 2020-07-16 22:10 | NUR ---
Officer remains at bedside with pt, sprite taken to pt per request.
--- NOTE | 2020-07-16 22:32 | NUR ---
Dr. Kruger called back, pt states will cooperate with sve and ua, discussed plan of care with pt that she will stay the night and be evaluated in am, not safe to dc at this time. Pt agreed, asking for sandwich tray. Ativan order received. officer states they will release her from handcuffs and she will be released from "[facility]".
--- NOTE | 2020-07-16 22:45 | NUR ---
House sup remains on unit at this time,sitter needed for pt due to being released from handcuffs, and history of hitting and aggression. Dr. Reina and RN at bedside with offer at side of head of bed.SVE done, but moving, moaning and crying during exam, closed, thick and high. Pt then uncuffed. Discussed with pt there are sanitary wipes in bathroom with mesh panties, rn took sterile cup for pt to void into, pt washed hands and was laughing when she returned to bed. Sitter at bedside. Pt states "she could not pee at this time". immigration officer leaving room, pt cont to laugh and smile at him while he leaves.
[2020-07-16] MEDS ORDERED: LORazepam 0.5 MG (ATIVAN) TABLET ONE (22:50)
[2020-07-16] MEDS ORDERED: LORazepam 0.5 MG (ATIVAN) TABLET PO ONE (23:00)
--- NOTE | 2020-07-16 23:00 | NUR ---
pt sitting up eating food, plan of care reviewed, pt cont to laugh while RN is talking. Rn has not seen blood on pad in bed or in toilet since pt has been here. sitter remains at bedside, plan of care cont to review with pt that she will stay the night in this room and be evaluated for psych tomorrow.
--- NOTE | 2020-07-16 23:55 | NUR ---
Rn to room, pt sleeping at this time, sitter remains at bedside.
--- NOTE | 2020-07-17 02:15 | NUR ---
pt cont to sleep with sitter at bedside.
[2020-07-17 03:25] VITALS: BP 106/55
--- NOTE | 2020-07-17 03:25 | NUR ---
Pt sleeping, vs taken, pt changed position, did not open eyes but responded to commands and denies needs. sitter remains in room.
--- NOTE | 2020-07-17 04:49 | NUR ---
Call light answered, sprite and sandwich tray given per pt request. Sitter remains at bedside. no void noted.
--- NOTE | 2020-07-17 06:50 | NUR ---
Dr. Garnett at bedside, pt sleepy.
--- NOTE | 2020-07-17 08:00 | NUR ---
breakfast tray delivered to bedside. sitter with patient r/t patient safety concerns.
[2020-07-17 08:36] LABS: BILIRUBIN,URINE NEGATIVE (NEGATIVE); CLARITY,URINE CLEAR; COLOR,URINE YELLOW; GLUCOSE, URINE (UA) NEGATIVE (NEGATIVE); KETONES,URINE NEGATIVE (NEGATIVE); LEUKOCYTE ESTERASE ,URINE NEGATIVE (NEGATIVE); NITRITE,URINE NEGATIVE (NEGATIVE); PROTEIN,URINE NEGATIVE (NEGATIVE)
[2020-07-17 08:42] LABS: BACTERIA,URINE NEGATIVE /HPF; SQUAMOUS EPITHELIAL CELL,UR 0-2 /HPF
[2020-07-17 08:53] LABS: AMPHETAMINE SCREEN, URINE NEGATIVE (NEGATIVE); BENZODIAZEPINES SCREEN URINE POSITIVE (NEGATIVE); COCAINE SCREEN URINE NEGATIVE (NEGATIVE)
[2020-07-17 08:54] LABS: BARBITURATE SCREEN URINE NEGATIVE (NEGATIVE); CANNABINOID SCREEN, URINE NEGATIVE (NEGATIVE); METHADONE STAT NEGATIVE (NEGATIVE); METHAMPHETAMINE SCREEN URINE S POSITIVE (NEGATIVE); OPIATE SCREEN URINE NEGATIVE (NEGATIVE); OXYCODONE STAT NEGATIVE (NEGATIVE); PROPOXYPHENE STAT NEGATIVE (NEGATIVE); TRICYCLIC ANTIDEPRESSANTS SCRE NEGATIVE (NEGATIVE)
[2020-07-17 11:10] VITALS: BP 122/71
--- NOTE | 2020-07-17 11:45 | NUR ---
patient very agitated and begins to strike abdomen (self Inflicted) during DCF visit. see DCF notes for further detail.
--- NOTE | 2020-07-17 11:45 | NUR ---
this RN to bedside to sit with patient. patient resting quietly. bathpack, hairbrush, toothbrush given per patient request. up to bathroom performing ADLS. Addendum: 07/17/20 at 1934 by RAMESH NEGRON RN occured at 1215
--- NOTE | 2020-07-17 11:47 | NUR ---
CM/SS social service consult. CM/SS contacted [facility] office this a.m. to inform them that patient was admitted to the hospital due to report made at last admission. The DCF worker Maryanderrick Sergei ([phone]), reports she has been attempting to find this patient for the past week. She has been unsuccessful in finding her or getting her to talk with Jennifer. Jennifer visited the hospital to assess patient. Jennifer reports that the patient became aggressive and agitated during their interview leading to the patient "punching her self in the stomach" According to DCF worker, the patient kept stating that her and her baby are filthy and she just wants her baby cut out of her. The patient called the DCF inappropriate names and was not very cooperative. She stated to Jennifer that she was 15 years old (currently) and that she has a prescription for Methamphetamines. Jennifer informed this sw that the nurse contacted the [facility]. [facility] but has been [facility]. CM/SS contacted the patient's nurse Emma to discuss and get an update. She states that she did call [facility] but is waiting for a call back. This sw contacted [facility] to follow up. Jase from agency reports that he will come to the hospital and screen the patient for placement today. He states that [place] may want this hospital to hold patient for 24 hours due to drug use. CM/SS also discussed having a referral for behavioral health if needed. Emma verbalized understanding and is checking on it. CM/SS will continue to follow. Addendum: 07/17/20 at 1612 by CULLEN PEREZ CM/ANNALISA update: CM/SS visited with patient and assisted with the Resident. The patient was lying calmly in the bed. The patient's mood appeared to be stable and calm at the time of the visit. The patient reports that she is doing fine and had questions regarding a Gas card. ROZINA/SS informed her that we are waiting until closer to discharge to give that at this time. ROZINA/ANNALISA did discuss the plan for inpatient mental health treatment. She verbalized understanding. She reports she has not been diagnosed with a mental health diagnosis or taken any mental health medications. The patient states she does still have a friend that she was able to stay with for a couple of nights when the weather got cold but otherwise does not have a good support system. The patient did verbalize she [facility] and was released from their care. ROZINA/ANNALISA following for discharge planning.
--- NOTE | 2020-07-17 12:25 | NUR ---
screener from [facility] to bedside assessing patient.
--- NOTE | 2020-07-17 13:00 | NUR ---
live natalee visit with dr londono.
--- NOTE | 2020-07-17 13:16 | OB Triage Report ---
Standard Progress Note Progress Notes/Assess & Plan Date Seen by a Provider: Jul 17, 2020 Time Seen by a Provider: 13:05 Expected Date of Delivery: Sep 19, 2019 Gestational Age in Weeks: 30 Gestational Age in Days: 6 LMP/BONG Comment: Patient continues to report that she has this 29 inch baby inside her that we need to get out of her. She reports that she needs an emergent . She is unwilling to share other information at this time. Per reports from DCF, patient is belligerant during their interview, reports that she makes inappropriate comments, cussing during the interview, hitting and punching at her abdomen, and reports that she wants the nurses her to get this baby out of her. Progress/Assessment & Plan 34 y/o female at 30w6d with PMH substance use, incarceration, h/o x3? admitted for altered mental status #Altered Mental Status - unclear etiology, likely components of substance use, given her UDS positive for methamphetamines and benzos. May also have components of primary psych diagnosis. - UA unremarkable > psychosocial rehabilitation counselor and behavioral health consults; appreciate recs. Will require further inpatient admission given she is unsafe to herself and her fetus > DCF involved #Substance Use - UDS positive for methamphetamines and benzos - will monitor for benzo withdrawal, may require taper if she starts to exhibit symptoms of withdrawal # ~30 weeks; unclear dating - patient reports she is unsure of her LMP or BONG. Prior U/S on 07/06/20 estimates BONG 09/19/20, anterior placenta, breech presentation - labs drawn at last admission, with exception of GC/Ct - NST reactive, SVE closed, thick, and high; initial complaints of vaginal bleeding, but exam and NST reassuring. No evidence of bleeding on exam > routine care d/w Dr. Mariola Reina MD [facility] Resident Physician, PGY-2 NATHALIA REINA MD Jul 17, 2020 13:16
[2020-07-17] MEDS ORDERED: hydrOXYzine (ATARAX) 10 MG TAB PO NR (14:00)
--- NOTE | 2020-07-17 14:30 | NUR ---
patient requested medication for anxiety. see EMAR.
--- NOTE | 2020-07-17 15:45 | NUR ---
social sciences lecturer to bedside for consult with dr ball.
--- NOTE | 2020-07-17 16:00 | NUR ---
resting quietly with eyes closed. even respirations.
--- NOTE | 2020-07-17 17:40 | NUR ---
dinner tray to bedside. patient turned TV on, lights remain off per patient request.
--- NOTE | 2020-07-17 18:30 | NUR ---
resting quietly with eyes closed. voices no need or concerns at this time.
[2020-07-17 19:15] VITALS: BP 117/67
--- NOTE | 2020-07-17 19:30 | NUR ---
Pt up and cleaning room and person, Pt VS obtained and doppler in the 150's, Pt resting afterwards.
--- NOTE | 2020-07-18 05:43 | NUR ---
Pt has rested throughout the night with no incident.
--- NOTE | 2020-07-18 07:19 | NUR ---
Pt awaken for breakfast. Pt sat up immediately ate breakfast. Pt cooperative for am assessment. Vital signs and FHT's obtained 150. Pt return to sleep after assessment. Eyes closed and relaxed heavy breathing. Room quiet.
[2020-07-18 07:20] VITALS: BP 111/69
--- NOTE | 2020-07-18 08:25 | NUR ---
Dr Reina in to see pt.
--- NOTE | 2020-07-18 08:53 | OB Triage Report ---
Standard Progress Note Progress Notes/Assess & Plan Date Seen by a Provider: Jul 18, 2020 Time Seen by a Provider: 08:30 Expected Date of Delivery: Sep 19, 2019 Gestational Age in Weeks: 31 Gestational Age in Days: 0 LMP/BONG Comment: No complaints this morning. Review of Systems negative Gen: lying in bed, minimally answers questions Pulm: non-labored respiration Abd: gravid abdomen, soft Neuro: grossly intact Psych: minimally conversant, thought process seems more linear this morning Progress/Assessment & Plan 34 y/o female at 30w6d with PMH substance use, incarceration, h/o x3? admitted for altered mental status #Altered Mental Status - unclear etiology, likely components of substance use, given her UDS positive for methamphetamines and benzos. May also have components of primary psych diagnosis. > DCF, addiction social worker, and behavioral health involved > patient accepted at [facility], pending bed availability #Substance Use - UDS positive for methamphetamines and benzos - will monitor for benzo withdrawal, may require taper if she starts to exhibit symptoms of withdrawal # ~30 weeks; unclear dating - patient reports she is unsure of her LMP or BONG. Prior U/S on 07/06/20 estimates BONG 09/19/20, anterior placenta, breech presentation - labs drawn at last admission, with exception of GC/Ct > routine care d/w Dr. Mariola Reina MD [facility] Resident Physician, PGY-2 NATHALIA REINA MD Jul 18, 2020 08:53
--- NOTE | 2020-07-18 09:35 | NUR ---
ROZINA/ANNALISA update. ROZINA/ANNALISA received call from Jase with [facility]. He reports that [facility] contacted him last evening and stated they are planning to take patient but it could potentially be a day or two. ROZINA/SS contacted the OB floor to notify them and give update. ROZINA/SS spoke with Rajwinder and gave update that [facility] should be calling them today with plan. She verbalized understanding and will inform nurse and Dr. Reina. CM/SS will continue to follow.
--- NOTE | 2020-07-18 09:37 | NUR ---
Pt continues to rest.
--- NOTE | 2020-07-18 10:00 | NUR ---
Rapid covid screen obtained and sent to lab. Pt transferred to room 307 via ambulation. Pt wearing mask,gown, underware and tread socks. Pt oriented to room. Pt cooperative and no concerns voiced.
--- NOTE | 2020-07-18 10:19 | NUR ---
Pt took shower and changed gown, panties and socks. No discharge noted on v-pad. no concerns voiced via pt.
--- NOTE | 2020-07-18 10:34 | NUR ---
Pt to bed. Semi fowlers. Eating sandwich and watching TV. call light within reach.
--- NOTE | 2020-07-18 11:25 | NUR ---
Report given to Rosanna Harden RN and she is assuming care.
--- NOTE | 2020-07-18 12:45 | NUR ---
sat up to bedside with delivery of lunch tray to bedside. denies pain or concerns at this time.
--- NOTE | 2020-07-18 13:30 | NUR ---
TV remains on patient, lights on, resting in bed with eyes closed. even respirations. no s/s of distress at this time.
--- NOTE | 2020-07-18 13:55 | NUR ---
this RN aroused patient for 2pm appt with dr londono. acknowledges understanding for virtual counseling visit. 1401 dr londono speaking with patient. 1404 patient requests to end visit with dr londono for today.
--- NOTE | 2020-07-18 14:10 | NUR ---
this RN spoke with dr londono on phone. dr londono reviewing current observation of patient emotional status. will call to check in with patient in AM for possible morning appt.
--- NOTE | 2020-07-18 15:20 | NUR ---
continues to rest quietly with eyes closed. no s/s of distress at this time.
--- NOTE | 2020-07-18 16:38 | Behavioral Health Consult ---
Consult- Consult Date Seen by Provider: Jul 17, 2020 Time Seen by Provider: 13:00 [facility] PSYCHOLOGICAL CONSULTATION PATIENT: Shirley Hogan DATE: 1985 DATES OF EVALUATION: 07/17/20 (13:00-13:50) DATE OF REPORT: 07/18/20 REFERRAL QUESTION: Shirley Hogan is a 34-year-old female who was admitted to the hospital due to potential self-harm to her and her unborn child. Dr. Stanton asked for a psychological consultation. TESTS ADMINISTERED: Clinical Interview with Patient over electronic device Feedback/consultation with Dr. Reina and Nurse La Nena PRESENTING PROBLEMS: Shirley Hogan is currently on the womens unit at the [facility]. She met with this production underwriter through a telehealth platform due to the COVID-19 pandemic. Shirley was difficult to track throughout the interview and had a difficult time completing her thoughts. She was in the hospital due to [facility] dropping her off at the hospital as they deemed her to be unsafe. She told this production underwriter that she was not going to hurt herself or the baby. According to La Nena though, Shirley hit herself in the stomach when talking to [facility] earlier in the day. She was referring to Shirley multiple times in the session in third person, which prompted this production underwriter to ask what she preferred being called. She responded quickly, Uky. She appeared psychotic during the evaluation and tested positive for methamphetamines and benzodiazepines. She was difficult to understand or to gather information from in her current state. She reports being eight to nine months and wants somebody to take her baby out as he is too big. She states that she would not be able to take care of the baby financially. CURRENT/PREVIOUS MENTAL HEALTH TREATMENT: Shirley reports receiving services at [facility]. When asked about previous therapy, she talked for a while about something that happened involving science and then said, Wyatt. A medication list was not available. MEDICAL HISTORY: See medical chart for detailed history. RECREATIONAL DRUG USAGE: Her most recent toxicology report showed metham phetamine and benzodiazepines. The medical records indicated that when she came to the hospital on 07/03/20 that she also had amphetamines in her system. Her old records show a history of alcohol and marijuana use as well. VOCATIONAL/EDUCATIONAL HISTORIES: Shirley reports that she attended [employer], [place] [employer]. She then appeared to change her mind. She also denied attend ing high school. Old medical records did indicate that she did attend [employer]. FAMILY AND SOCIAL HISTORIES/SOCIAL SUPPORT: Shirley refused to give any information regarding her family or social history. She ([place]) indicated that Shirley had been in the past (three times) but that she had never been . She indicated that she would not ask her family for help with the baby. She did not answer what family she had or where they lived. BEHAVIORAL OBSERVATIONS/MENTAL STATUS: The patient was seen in her hospital room as she was lying in her bed wearing a hospital gown. The interview was done virtually. She was extremely difficult to track as she did not appear to make sense in most of her conversation. She had difficulty stringing multiple words together to make a sentence. She indicated that she has trouble sleeping. She talked about feeling depressed but later stated that it was not that bad. She did ask this production underwriter if she could have something for anxiety. SUMMARY: Shirley Hogan is currently at the hospital due to potential self-harm and harm to her unborn baby. She is difficult to track at this time and appears to be psychotic. This psychosis could be attributed to there being methamphetamines in her system. aL Nena and Dr. Reina informed this production underwriter that Jase Carter from [facility] is currently looking for a psychiatric bed for this patient. This production underwriter plans to meet with Shirley again tomorrow if she is still at the hospital. 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 Copy Copies To 1: NATHALIA REINA MD Copies To 2: CHEY STANTON MD, JEFFREY M PSYD Jul 18, 2020 16:38
--- NOTE | 2020-07-18 16:40 | NUR ---
sprite given to patient per request. denies further need at this time.
--- NOTE | 2020-07-18 16:42 | Behavioral Health ProgressNote ---
Standard Progress Note Progress Notes/Assess & Plan Date Seen 07/18/20 Time Seen by Provider: 14:00 Assess & Plan/Chief Complaint Patient was quite tired during the interview and ended the appointment abruptly. She mentioned that she slept well (when asked about her sleep). She indicated that she was still "Uky" today. She states that, "I've been erased." She again did not make much sense today but did not want to engage any more than just a few minutes. This filing writer will attempt to make contact tomorrow if she is still in the hospital. Labs Laboratory Tests 07/16/20 20:40 Time spent with patient (mins): 5 DEANA CACERES PSYD Jul 18, 2020 16:42
--- NOTE | 2020-07-18 16:50 | NUR ---
patient awake, instigated conversation with this RN, about weather, annd current events
--- NOTE | 2020-07-18 17:30 | NUR ---
sitting up eating dinner tray while watching TV continues to smile and visit with this RN.
--- NOTE | 2020-07-18 18:40 | NUR ---
request anxiety medication. see eMAR. up to bathroom performing oral care.
[2020-07-18] MEDS: hydrOXYzine (ATARAX) 10 MG TAB PO PRN (18:42)
[2020-07-18] MEDS: FAMOTIDINE 20 MG (PEPCID) TABLET PO PRN (19:07)
[2020-07-18] MEDS: ACETAMINOPHEN 500 MG TAB (TYLENOL) PO PRN (19:22)
--- NOTE | 2020-07-18 19:22 | NUR ---
Pt. c/o constant lower back pain described as aching, Tylenol ES offered & given, pt. appreciative. Also requesting Tums, will give. Pt. up in room, rearranging items on bedside table, requesting bed linens to be changed, new linens put on bed, warm blanket offered & to back. Will re-eval pain.
[2020-07-18] MEDS ORDERED: CALCIUM CARBONATE 500 MG (TUMS) TAB.CHEW ONE (19:26)
[2020-07-18] MEDS ORDERED: CALCIUM CARBONATE 500 MG (TUMS) TAB.CHEW PO PRN ×2 (19:30→20:00)
[2020-07-18 19:35] VITALS: BP 120/61
--- NOTE | 2020-07-18 21:00 | NUR ---
Pt. asleep, no sxs resp distress.
--- NOTE | 2020-07-18 23:00 | NUR ---
Pt. cont. to sleep soundly, RN remains @ bedside.
--- NOTE | 2020-07-19 01:15 | NUR ---
Pt. asleep, no prob noted.
[2020-07-19 01:55] VITALS: BP 106/55
--- NOTE | 2020-07-19 01:55 | NUR ---
Pt. awoke, up to BR, voided & back to bed. VSS, FHT via doppler, noted to be 145 bpm. Fresh ice water, Sprite & sandwich tray given per request, pt. very appreciative.
[2020-07-19] MEDS: hydrOXYzine (ATARAX) 10 MG TAB PO PRN ×4 (02:20→18:36)
--- NOTE | 2020-07-19 04:00 | NUR ---
Pt. resting soundly, no resp distress.
--- NOTE | 2020-07-19 05:20 | NUR ---
Pt. awoke, requesting more Sprite & something to eat, encouraged pt. to drink the rest of her bottles of Sprite, pt. declined, requested & give Coca Cola & cain crackers. Pt. cont. to deny pain.
[2020-07-19] MEDS ORDERED: CALCIUM CARBONATE 500 MG (TUMS) TAB.CHEW PO PRN (05:30)
--- NOTE | 2020-07-19 06:57 | NUR ---
Dr. Garnett in to see pt, pt. awoke, denies pain or needs still. POC discussed w/pt per Dr. Garnett, pt. verbalized understanding. No new orders rc'd @ this time.
--- NOTE | 2020-07-19 07:06 | OB Triage Report ---
Standard Progress Note Progress Notes/Assess & Plan Time Seen by a Provider: 07:17 Expected Date of Delivery: Sep 19, 2019 Gestational Age in Weeks: 31 Gestational Age in Days: 1 LMP/BONG Comment: No complaints this morning. Reports she is feeling well and doesn't need anything at this time. Review of Systems negative Gen: lying in bed, minimally answers questions Pulm: non-labored respiration Abd: gravid abdomen, soft Neuro: grossly intact Psych: minimally conversant, blunted affect Progress/Assessment & Plan 34 y/o female at 31w1d with PMH substance use, incarceration, h/o x3? 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 May also have components of primary psych diagnosis. > DCF, social work specialist, and behavioral health involved > patient accepted at [facility], pending bed availability #Substance Use - UDS positive for methamphetamines and benzos - will monitor for benzo withdrawal, may require taper if she starts to exhibit symptoms of withdrawal # ~30 weeks; unclear dating - patient reports she is unsure of her LMP or BONG. Prior U/S on 07/06/20 estimates BONG 09/19/20, anterior placenta, breech presentation - labs drawn at last admission, with exception of GC/Ct > routine care d/w Dr. Mariola Reina MD [facility] Resident Physician, PGY-2 NATHALIA REINA MD Jul 19, 2020 07:06
[2020-07-19 09:15] VITALS: BP 109/60
[2020-07-19] MEDS: ACETAMINOPHEN 500 MG TAB (TYLENOL) PO PRN (09:17)
[2020-07-19] MEDS: FAMOTIDINE 20 MG (PEPCID) TABLET PO PRN (09:18)
--- NOTE | 2020-07-19 09:18 | NUR ---
request pain medication for back, heartburn medication, and anxiety medication. see EMAR.
--- NOTE | 2020-07-19 09:45 | NUR ---
resting on left side with eyes closed. snoring noted.
--- NOTE | 2020-07-19 10:20 | NUR ---
restless, pacing in room. denies concerns or needs to this RN.
--- NOTE | 2020-07-19 10:37 | History & Physical-OB/GYN ---
History of Present Illness History of Present Illness Reason for visit/HPI altered mental status Date of Admission Jul 17, 2020 at 09:34 Date Seen by a Provider: Jul 17, 2020 Time Seen by a Provider: 07:30 I consulted on this patient on 07/17/20 07:30 Attending Physician Leanne Kruger Admitting Physician No,Local Physician Consult Patient presented to labor and delivery complaining of vaginal bleeding and that her baby was "27 inches long and I need an emergent ." She was unable to provide further information about complaints, but repeatedly was cussing and inappropriate with staff and faculty. She reports that she needs us "to do our job and get this baby out of me. This baby is filthy." She was unable to provide her BONG, LMP, information about the father of baby. She reports that she does not have a doctor. Of note, she had been to OB triage about 10 days prior due to pain. She had an U/S and most of her labs completed at that time. UDS was positive for meth, amphetamines, and BZDs at that time and patient was discharged. Allergies and Home Medications Allergies Coded Allergies: No Known Drug Allergies (Verified , 12/31/07) Home Medications Unable to Obtain Active Prescriptions or Reported Meds Patient Home Medication List Home Medication List Reviewed: Yes Past Rdrhatm-Rhkajd-Ttruxd Hx Patient Social History Alcohol Use: Denies Use Recreational Drug Use: Yes Drug of Choice: meth Smoking Status: Current Everyday Smoker Type Used: Cigars 2nd Hand Smoke Exposure: No Recent Foreign Travel: No Contact w/other who traveled: No Recent Hopitalizations: No Immunizations Up To Date Tetanus Booster (TDap): Unknown Seasonal Allergies Seasonal Allergies: No Surgeries No Respiratory No Cardiovascular No Neurological No Reproductive System Expected Date of Delivery: Sep 19, 2019 Hx : 3 Hx Para: 2 Hx Reproductive Disorders: No Sexually Transmitted Disease: No Genitourinary No Gastrointestinal No Musculoskeletal No Endocrine History of Endocrine Disorders: No HEENT History of HEENT Disorders: No Cancer No Psychosocial History of Psychiatric Problem: No Integumentary History of Skin or Integumenta: No Blood Transfusions History of Blood Disorders: No Review of Systems ROS-Unable to Obtain: due to altered mental status Constitutional: no symptoms reported EENTM: no symptoms reported Respiratory: no symptoms reported Cardiovascular: no symptoms reported Gastrointestinal: no symptoms reported Genitourinary: no symptoms reported : Yes Physical Exam Physical Exam Vital Signs Vital Signs Date Time Temp Pulse Resp B/P (MAP) Pulse Ox O2 Delivery O2 Flow Rate FiO2 07/19/20 09:15 36.2 89 18 109/60 (76) Room Air 07/19/20 01:55 36.0 83 18 106/55 (72) 97 Room Air 07/18/20 19:35 36.6 86 18 120/61 (80) 97 Room Air Capillary Refill : Less Than 3 Seconds General Appearance: No Apparent Distress, Anxious Respiratory: No Accessory Muscle Use, No Respiratory Distress Cardiovascular: No Edema, Normal Peripheral Pulses Abdominal: non tender, soft Gynecology/General: No urethral discharge, No lesions Labia: WNL Vagina: WNL Cervix: WNL Cervix Mass: firm Cervix OS: closed Pelvic Exam: normal external exam, no cerv. motion tender Assessment/Plan Assessment and Plan 34 y/o female at 30w6d with PMH substance use, incarceration, h/o x3? admitted for altered mental status #Altered Mental Status - unclear etiology, likely components of substance use, given her UDS positive for methamphetamines and benzos. May also have components of primary psych diagnosis. - UA unremarkable > psychiatric social worker supervisor and behavioral health consults; appreciate recs. Will require further inpatient admission given she is unsafe to herself and her fetus > DCF involved #Substance Use - UDS positive for methamphetamines and benzos - will monitor for benzo withdrawal, may require taper if she starts to exhibit symptoms of withdrawal # ~30 weeks; unclear dating #Concern for vaginal bleeding - patient reports she is unsure of her LMP or BONG. Prior U/S on 07/06/20 estimates BONG 09/19/20, anterior placenta, breech presentation - labs drawn at last admission, with exception of GC/Ct - NST reactive, SVE closed, thick, and high - initial complaints of vaginal bleeding, but exam and NST reassuring. No evidence of bleeding on exam; CBC stable > routine care d/w Dr. Mariola Reina MD [facility] Resident Physician, PGY-2 Problems: (1) Status: Acute (2) Methamphetamine use Status: Acute Admission Diagnosis Altered Mental Status Methamphetamine Use Admission Status: Inpatient Order (span 2 midnights) Reason for Inpatient Admission: Altered Mental Status Diagnosis/Problems Diagnosis/Problems (1) Status: Acute (2) Methamphetamine use Status: Acute NATHALIA REINA MD Jul 19, 2020 10:37
--- NOTE | 2020-07-19 10:50 | NUR ---
CM/SS follow up. CM/SS visited with the patient's Resident and nurse. While this sw was on OB floor, [place] called the floor to speak with the nurse. She gave an update. [place] asked for additional labs and clinical sent to facility. This sw faxed H&P, progress notes, Labs, current medications, and Ultrasound. CM/SS notified nurse. Awaiting if patient will dismiss there today or tomorrow. CM/SS visited with the patient. She appeared alert, oriented, and calm at that time. She still has sitter at bedside. CM/SS gave an update about facility and DCF following. She verbalized understanding and did not appear upset. CM/SS will continue to follow.
--- NOTE | 2020-07-19 12:00 | NUR ---
pastoral care to bedside for visit. patient receptive see pastoral notes.
--- NOTE | 2020-07-19 12:10 | NUR ---
lunch tray serviced, tray finished in less than 15min time. sprite and ice to bedside per patient request.
--- NOTE | 2020-07-19 12:22 | NUR ---
Spiritual care follow up to build rapport and encourage pt to share her story and/or talk about anything of importance to her. The pt said she preferred to go by "Shirley." Story at times was difficult to follow, however she engaged warmly. States she plans to go to counseling after her discharge, and expressed feeling good about this. Pt states this is her first child, that her story was complicated, and she was making plans to share it at the right time. This Master Cook encouraged her emotional safety, encouraged her goals, and validated her dignity and worth as a creation of God.
--- NOTE | 2020-07-19 12:35 | NUR ---
resting on right side with eyes closed. intermittent snoring noted. even respirations.
--- NOTE | 2020-07-19 14:00 | NUR ---
resting in bed with eyes closed.
--- NOTE | 2020-07-19 15:20 | NUR ---
pacing in room, looking out door and into hallways.
--- NOTE | 2020-07-19 16:05 | NUR ---
requested anxiety medication. see eMAR. patient watching TV. ordered food.
--- NOTE | 2020-07-19 16:30 | NUR ---
up to bathroom fixing hair and makeup. staff remains present observing for self harm or safety concerns. no concerns noted by this RN at this time. patient changed clothing and underwear.
--- NOTE | 2020-07-19 17:00 | NUR ---
patient restless, pacing room.
--- NOTE | 2020-07-19 17:15 | NUR ---
fht's 130-150's. denies abdominal pain or contractions. no active bleeding reported or noted. patient smiling laughing, watching TV. initiating conversation with this RN.
--- NOTE | 2020-07-19 17:35 | NUR ---
sitting up eating dinner while watching TV. cleaning up room independently.
--- NOTE | 2020-07-19 17:50 | NUR ---
spoke with sirisha on phone. Dr jacobsen given to staff for coordinating transfer.
--- NOTE | 2020-07-19 18:30 | NUR ---
dr unger notified of patient request for anxiety medication. new orders received.
--- NOTE | 2020-07-19 18:35 | NUR ---
anxiety medication given as ordered see EMAR. resting in bed watching TV.
[2020-07-19] MEDS ORDERED: hydrOXYzine (VISTARIL/ATARAX) 25 MG capsule/tablet PO ONE (18:45)
[2020-07-19] MEDS ORDERED: hydrOXYzine (ATARAX) 10 MG TAB PO NR (18:45)
--- NOTE | 2020-07-19 19:10 | NUR ---
[facility] called, notified David Reina, resident, that bed is available. Will arrange transfer to [place].
--- NOTE | 2020-07-19 19:17 | NUR ---
Called [facility] for transport, they are unable to transfer psych pts, will contact [employer].
--- NOTE | 2020-07-19 19:33 | NUR ---
Called [phone] @ [facility] to speak w/lady Torrey that answered stated she will contact him & have him return phone call.
[2020-07-19 20:00] VITALS: BP 126/64
--- NOTE | 2020-07-19 20:13 | NUR ---
Called [employer], talked to Lt Fay, is able to transport pt when ready.
--- NOTE | 2020-07-19 20:17 | NUR ---
Jase Carter w/[facility] returned call, he will call [employer] for transport & call back.
--- NOTE | 2020-07-19 20:23 | NUR ---
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
--- NOTE | 2020-07-19 20:27 | NUR ---
Report called to [facility] Triage, nurse unavailable to take report, given to person @ Triage desk.
--- NOTE | 2020-07-19 20:34 | NUR ---
D/C instructions given & explained for transfer, pt. verbalized understanding & signed, copy of D/C to pt, put w/pt's belongings.
--- NOTE | 2020-07-19 20:40 | NUR ---
Pt. pacing, states talking fast "I need something for nerves" repeatedly. Called Dr. Garnett, update given, new order rc'd to give Atarax 10 mg PO now X1, given @ 2043.
[2020-07-19] MEDS ORDERED: hydrOXYzine (ATARAX) 10 MG TAB PO ONE (20:45)
--- NOTE | 2020-07-19 20:45 | NUR ---
Pt. left [facility] ambulatory escorted by 2 [employer] officers, to [facility] via [facility] vehicle. D/C & pt's belongings w/pt.
== END 2020-07-19 20:45 ==
LOC: WSo 19:53 → LDRP 19:53 → WSo 07-17 09:14 → LDRP 07-17 09:34
PROVIDERS: ADMIT Family Medicine; ATTEND Obstetrics & Gynecology
DX: O99.323 Drug use complicating pregnancy, third trimester (principal); Z3A.30 30 weeks gestation of pregnancy; F15.259 Other stimulant dependence with stimulant-induced psychotic disorder, unspecified; Z20.828 Contact with and (suspected) exposure to other viral communicable diseases
CPT/HCPCS: 80053; 80306; 81000; 85025; G0378; G0379; U0002; 36415; 87635; 99211